=== PATIENT | female | born 1975 | race Hispanic/Latino ===

== ENCOUNTER 2019-10-05 10:00 | Inpatient (IN) | payer BC ==
[~2019-10-05] VITALS: Ht 157.5 cm; Wt 76.6 kg
[~2019-10-05 10:00] MED LIST: MULT-722 PO
[2019-10-05 10:34] LABS: BASOPHILS % (AUTO) 0.5 % (0.0-5.0); EOSINOPHILS % (AUTO) 0.7 % (0.0-8.0); HEMATOCRIT 33.7 % (36-48); LYMPHOCYTES % (AUTO) 17.2 % (21.0-51.0); MEAN CORPUSCULAR HEMOGLOBIN 21.3 pg (27.0-33.0); MEAN CORPUSCULAR HGB CONC 29.4 g/dL (32.0-36.0); MEAN CORPUSCULAR VOLUME 72.6 fL (79-99); MONOCYTES % (AUTO) 6.6 % (3.0-13.0); NEUTROPHILS % (AUTO) 74.5 % (40.0-77.0); PLATELET COUNT (AUTO) 280 K/uL (130-400); RED BLOOD CELL COUNT(AUTO) 4.64 MIL/uL (4.00-5.50); RED CELL DISTRIBUTION WIDTH 17.4 % (11.0-15.5)
[2019-10-05 10:49] LABS: CREATININE 0.6 mg/dL (0.5-1.5); POTASSIUM 3.9 mmol/L (3.5-5.1)
--- NOTE | 2019-10-11 10:05 | NUR ---
labs abnormal labs reported to dr. poole, message left with yen. pending call back
[2019-10-12] VITALS (21 sets, daily range): BP systolic 116–155; BP diastolic 52–95
[2019-10-12] MEDS ORDERED: DURAMORPH PF1 MG/ML 10ML AMP IV ONE (12:20)
[2019-10-12] MEDS ORDERED: LIDOCAINE PF 2% 5ML ABBOJECT ONE (12:21)
[2019-10-12] MEDS ORDERED: DEXAMETHASONE SOD PHOSPHATE 10MG/ML 1ML VIAL ONE (12:21)
[2019-10-12] MEDS ORDERED: SUCCINYLCHOLINE CHLORIDE 20 MG/ML 10 ML VIAL ONE (12:21)
[2019-10-12] MEDS ORDERED: ONDANSETRON HCL 4 MG/2 ML VIAL ONE (12:22)
[2019-10-12] MEDS ORDERED: MIDAZOLAM HCL 1 MG/ML 2ML VIAL ONE ×2 (12:22→13:01)
[2019-10-12] MEDS ORDERED: NEOSTIGMINE 5MG/5ML SYR IV ONE ×2 (12:23→15:36)
[2019-10-12] MEDS ORDERED: FENTANYL CITRATE PF 50 MCG/1 ML 2ML VIAL ONE (12:23)
[2019-10-12] MEDS ORDERED: ROCURONIUM 10MG/1ML SYR 10 MG/ML ML ONE (12:23)
[2019-10-12] MEDS ORDERED: PROPOFOL 10 MG/ML 20ML VIAL IV ONE (12:23)
[2019-10-12] MEDS ORDERED: GLYCOPYRROLATE 1 MG/5 ML SYRINGE ONE (12:23)
--- NOTE | 2019-10-12 12:30 | NUR ---
preop pt arrived ambulatory in no distress. pt here for [place]. pt oriented to room and call light. will continue to monitor pt.
[2019-10-12] MEDS ORDERED: HYDR25TA PO (12:50)
[2019-10-12] MEDS ORDERED: CEFAZOLIN SODIUM 1 GM VIAL ONE (13:07)
[2019-10-12] MEDS: LACTATED RINGERS 1000ML 1,000 ML IV SCH ×2 (13:12→15:55)
[2019-10-12] MEDS ORDERED: EPHEDRINE SULFATE 50 MG/ML AMPULE ONE (15:01)
[2019-10-12] MEDS ORDERED: BISACODYL 10 MG SUPP.RECT RC PRN (16:00)
[2019-10-12] MEDS ORDERED: ACETAMINOPHEN-CODEINE 300/30MG TAB PO PRN (16:00)
[2019-10-12] MEDS ORDERED: PROMETHAZINE HCL 25 MG/ML 1ML AMPULE IM PRN (16:00)
[2019-10-12] MEDS ORDERED: IBUPROFEN 600 MG TABLET PO PRN (16:00)
[2019-10-12] MEDS ORDERED: MEPERIDINE-PF 25 MG/ML SYG ONE ×2 (16:11→16:19)
[2019-10-12] MEDS: DEXTROSE 5 %-0.45 % NACL 1,000 ML IV PRN (17:16)
--- NOTE | 2019-10-12 18:00 | NUR ---
PATIENT HAS REMAINED STABLE BUT HAD ONE EPISODE OF EMESIS FOR 100CC OF WATER EMESIS. PATIENT HAD BEEN EATING ICE PRIORTO EPISODE. STATES BEGINING TO HAVE SOME PAIN TO ABDOMEN.
[2019-10-12] MEDS ORDERED: NALOXONE HCL 0.4 MG/1 ML ML IVP PRN ×3 (18:45)
[2019-10-12] MEDS ORDERED: DiphenhydrAMINE HCL 50 MG/ML VIAL IVP PRN (18:45)
[2019-10-12] MEDS ORDERED: MEPERIDINE-PF 25 MG/ML SYG IV PRN (18:45)
[2019-10-12] MEDS ORDERED: EPHEDRINE SULFATE 50 MG/ML AMPULE IVP PRN (18:45)
[2019-10-12] MEDS: ONDANSETRON HCL 4 MG/2 ML VIAL IVP PRN (18:58)
--- NOTE | 2019-10-12 19:15 | NUR ---
REPORT GIVEN TO Breanne MARTINEZ RN AND PATIENT CARE TRANSFERED AT THIS TIME.
[2019-10-12] MEDS: PROMETHAZINE HCL 25 MG/ML 1ML AMPULE IM PRN (20:09)
[2019-10-12] MEDS: MEPERIDINE-PF 75 MG/ML SYG IM PRN (20:10)
[2019-10-13] MEDS: DEXTROSE 5 %-0.45 % NACL 1,000 ML IV PRN ×2 (01:24→10:49)
--- NOTE | 2019-10-13 01:31 | NUR ---
PT. MEDICATED WIT 2 TABS TYLENOL WITH CODEINE FOR A PAIN SCALE OF 5, DENIED N/V AT THIS TIME.
--- NOTE | 2019-10-13 02:02 | NUR ---
PT. CALLED THAT SHE VOMITED AND THAT SHE MAY HAVE VOMITED THE CODEINE TABLETS; ON EXAMINATION OF THE EMESIS, 60 CC OF CLEAR FLUID WAS SEEN, NO TABLETS WAS SEEN OR FELT. INST PT. THAT IF PAIN PERSISTS, SHE WILL BE REASSESSED. PT DROWSY AT THIS TIME AND DENIED PAIN.
[2019-10-13 03:57] VITALS: BP 111/66
--- NOTE | 2019-10-13 04:30 | NUR ---
TAYA CARE DONE, ABDOMINAL BINDER APPLIED.
[2019-10-13] MEDS: PROMETHAZINE HCL 25 MG/ML 1ML AMPULE IM PRN (04:35)
[2019-10-13] MEDS: MEPERIDINE-PF 75 MG/ML SYG IM PRN (04:36)
--- NOTE | 2019-10-13 04:36 | NUR ---
PT. MED FOR PAIN, NO N/V NOTED.
--- NOTE | 2019-10-13 06:05 | NUR ---
HARE CATHETER DISCONTINUED, TAYA CARE DONE. PT. INST TO CALL FOR ASSIST BEFORE GETTING OUT OF BED, VERBALIZED UNDERSTANDING. Addendum: 10/13/19 at 0621 by FRANCISCO MARTINEZ RN RN Amended: Links added.
[2019-10-13 06:19] LABS: HEMATOCRIT 29.3 % (36-48); MEAN CORPUSCULAR HEMOGLOBIN 21.3 pg (27.0-33.0); MEAN CORPUSCULAR HGB CONC 29.7 g/dL (32.0-36.0); MEAN CORPUSCULAR VOLUME 71.6 fL (79-99); PLATELET COUNT (AUTO) 230 K/uL (130-400); RED BLOOD CELL COUNT(AUTO) 4.09 MIL/uL (4.00-5.50); RED CELL DISTRIBUTION WIDTH 17.1 % (11.0-15.5); WHITE BLOOD COUNT (AUTO) 12.6 K/uL (4.8-10.8)
[2019-10-13 07:40] VITALS: BP 110/63
[2019-10-13] MEDS ORDERED: HYDROCODONE/ACETAMINOPHEN 5/325 MG TAB PO PRN (07:45)
[2019-10-13] MEDS ORDERED: BISACODYL 10 MG SUPP.RECT RC PRN (07:45)
[2019-10-13] MEDS: ONDANSETRON HCL 4 MG/2 ML VIAL IVP PRN (08:12)
--- NOTE | 2019-10-13 08:30 | NUR ---
PATIENT ASSISTED UP TO CHAIR AND TOLERATED ACTIVITY WELL. INDICATED WANTING TO VOID AND WAS ABLE TO VOID WELL.
[2019-10-13] MEDS: DOCUSATE SODIUM 100 MG CAP PO PRN ×2 (09:03→21:13)
[2019-10-13] MEDS: IBUPROFEN 800 MG TAB PO PRN ×2 (10:48→21:14)
[2019-10-13 11:09] VITALS: BP 106/52
--- NOTE | 2019-10-13 16:00 | NUR ---
PATIENT MEDICATED WITH TYLENOL #3 X 2 TABS AND AMBULATED IN HALLWAY. PIV REMOVED AND PATIENT DENIES ANY PROBLEMS.
[2019-10-13] MEDS: ACETAMINOPHEN-CODEINE 300/30MG TAB PO PRN ×2 (16:07→20:02)
[2019-10-13 16:22] VITALS: BP_SYST 119; BP_SYST 131; BP_DIAS 60; BP_DIAS 74
[2019-10-13 19:49] VITALS: BP 122/70
[2019-10-13] MEDS: SIMETHICONE 80 MG TAB.CHEW PO PRN (21:13)
[2019-10-14 00:14] VITALS: BP 126/78
[2019-10-14 04:23] VITALS: BP 115/67
[2019-10-14] MEDS: ACETAMINOPHEN-CODEINE 300/30MG TAB PO PRN (05:08)
[2019-10-14] MEDS: IBUPROFEN 800 MG TAB PO PRN (06:05)
[2019-10-14 08:00] VITALS: BP 144/77
[2019-10-14] MEDS: DOCUSATE SODIUM 100 MG CAP PO PRN (08:26)
[2019-10-14] MEDS: SIMETHICONE 80 MG TAB.CHEW PO PRN (08:27)
--- NOTE | 2019-10-14 09:50 | NUR ---
DR. WHITE ROUNDED AND DISCHARGED PATIENT TO HOME. PATIENT TO FOLLOW UP IN CLINIC IN ONE WEEK. PATIENT IS STABLE AND JUST FINISHED TAKING SHOWER AND TOLERATED ACTIVITY WELL.
--- NOTE | 2019-10-14 10:55 | NUR ---
DISCHARGE INSTRUCTIONS GIVEN AND PATIENT VERBALIZED UNDERSTANDING INSTRUCTIONS. REINFORCED PER DR. WHITE TO CONTINUE TAKING IRON PILLS AFTER DISCHARGE FOR ANEMIA AND SCRIPT FOR TYLENOL #3 GIVEN AND INSTRUCTED ON DOSAGE AND FREQUENCY OF TYLENOL #3, MOTRIN, AND IRON TABLETS. PT INDICATED UNDERSTANDING INSTRUCTIONS GIVEN.
--- NOTE | 2019-10-14 11:20 | NUR ---
WAS TAKEN VIA W/C TO FAMILY VEHICLE AND WAS DISCHARGED TO HER SPOUSE IN STABLE CONDITION.
== END 2019-10-14 11:20 | disposition home or self-care (01) | DRG 743 ==
LOC: EDSTATUS 10:00 → DAHIP 10-12 12:13 → WSH 10-12 17:00
PROVIDERS: ADMIT Specialist; ATTEND Specialist
PROC: 0UT90ZZ Resection of Uterus, Open Approach (ICD-10-PCS; principal; 2019-10-12 14:30)
PROC: 0UT70ZZ Resection of Bilateral Fallopian Tubes, Open Approach (ICD-10-PCS; 2019-10-12 14:30)
PROC: 0UT20ZZ Resection of Bilateral Ovaries, Open Approach (ICD-10-PCS; 2019-10-12 14:30)
DX: D25.9 Leiomyoma of uterus, unspecified (principal); Z20.828 Contact with and (suspected) exposure to other viral communicable diseases; Z98.891 History of uterine scar from previous surgery; Z98.51 Tubal ligation status
CPT/HCPCS: 36415; 80048; 84703; 85025; 85027; 86850; 86900; 86901; A4344; G0378; J0330; J0690; J1100; J2001; J2175; J2250; J2274; J2405; J2550; J2704; J2710; J3010; J3490; J7030; J7120; U0003

== ENCOUNTER 2024-07-10 08:02 | Emergency (ER) | payer BC ==
[~2024-07-10] VITALS: Ht 157.5 cm; Wt 104.3 kg
[~2024-07-10 08:02] MED LIST changes: +CYCL-309 PO; +HYDR25TA PO; +IBUP-2070 PO; -MULT-722 PO
[2024-07-10 08:45] VITALS: BP 158/96; PULSE 84; RESP 23; TEMP 98.1; O2SAT 96
[2024-07-10 08:49] LABS: BASOPHILS # (AUTO) 0.02 K/uL (0.00-0.20); BASOPHILS % (AUTO) 0.3 % (0.0-5.0); EOSINOPHILS # (AUTO) 0.13 K/uL (0.00-0.70); EOSINOPHILS % (AUTO) 1.6 % (0.0-8.0); HEMATOCRIT 42.1 % (36-48); IMMATURE GRANULOCYTE ABSOLUTE 0.04 K/uL (0-1); LYMPHOCYTES # (AUTO) 1.4 K/uL (1.0-4.8); LYMPHOCYTES % (AUTO) 17.4 % (21.0-51.0); MEAN CORPUSCULAR HEMOGLOBIN 27.9 pg (27.0-33.0); MEAN CORPUSCULAR HGB CONC 32.8 g/dL (32.0-36.0); MEAN CORPUSCULAR VOLUME 85.2 fL (79-99); MONOCYTES # (AUTO) 0.4 K/uL (0.1-1.0); MONOCYTES % (AUTO) 5.6 % (3.0-13.0); NEUTROPHILS # (AUTO) 5.9 K/uL (1.8-7.7); NEUTROPHILS % (AUTO) 74.6 % (40.0-77.0); PLATELET COUNT (AUTO) 227 K/uL (130-400); RED BLOOD CELL COUNT(AUTO) 4.94 MIL/uL (4.00-5.50); RED CELL DISTRIBUTION WIDTH 12.7 % (11.0-15.5); WHITE BLOOD COUNT (AUTO) 7.9 K/uL (4.8-10.8)
--- NOTE | 2024-07-10 08:50 | NUR ---
Patient is alert and oriented. Able to voice needs. answering all questions without the assisstance of spouce. Significant other told to wait in waiting area due to significant other getting patient aggitated. Notify Mr. Foster charge nurse and ER physician Dr. Dunn.
[2024-07-10] MEDS: acetaMINOPHEN 500 MG TABLET PO ONE (08:51)
[2024-07-10] MEDS: PROCHLORPERAZINE 10MG/2ML INJ IV ONE (08:52)
[2024-07-10] MEDS: LACTATED RINGERS 1000ML 1,000 ML IV ONE (08:52)
[2024-07-10 08:56] LABS: CREATININE 0.5 mg/dL (0.5-1.0); POTASSIUM 3.8 mmol/L (3.5-5.1)
[2024-07-10 09:21] VITALS: TEMP 98.1
--- NOTE | 2024-07-10 09:23 | EKG ---
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
--- NOTE | 2024-07-10 09:36 | NUR ---
home medication reviewed.
--- NOTE | 2024-07-10 10:46 | ERN ---
General Chief Complaint: Headache Stated Complaint: HEADACHE, AMS Time Seen by MD: 08:08 Source: patient History of Present Illness Initial Comments PATIENT IS A 48-YEAR-OLD FEMALE COMING IN WITH SEVERAL COMPLAINTS. PATIENT STATES THAT SHE HAS BEEN HAVING HEADACHES FOR ONE WEEK. SHE DOES HAS A HISTORY OF MIGRAINES AND ANXIETY. PER PATIENT SHE HAS STOPPED TAKING HER ANXIETY M EDICATIONS ONE WEEK AGO. HAS BEEN IN HIS CONCERNED OF HER PRESENTATIONS WAS BROUGHT HER IN FOR FURTHER EVALUATION Allergies: Coded Allergies: cyproheptadine (Unverified Allergy, Severe, HIVES, PINS AND NEEDLES SENSATION, 12/30/15) erythromycin base (Unverified Allergy, Severe, SWELLING OF TONGUE, EYES, MOUTH, THROAT , 12/30/15) clarithromycin (Unverified Allergy, Mild, VOMITING, 12/30/15) Home Meds Active Scripts Ibuprofen (Ibuprofen) 600 Mg Tablet, 600 MG PO Q6H PRN for PAIN, #30 TAB 1 Refill Prov:PATRICK HOUSE MD 06/08/21 Cyclobenzaprine HCl (Cyclobenzaprine HCl) 10 Mg Tablet, 10 MG PO TID PRN for PAIN, #15 TAB 0 Refills Prov:PATRICK HOUSE MD 06/08/21 Reported Medications Hydrochlorothiazide (Hydrochlorothiazide) 25 Mg Tablet, 25 MG PO HS, TAB 10/12/19 Past Medical History Past Medical History: Hypertension, Migraines Past Surgical History: Hysterectomy, ROS Dictation CONSTITUTIONAL: NO CHILLS, NO FEVER, NO WEAKNESS, NO DIAPHORESIS, NO MALAISE. HEAD/FACE: NO SIGNS OF TRAUMA. EENT: NO EYE PAIN, NO BLURRED VISION, NO TEARING, NO DOUBLE VISION, NO EAR PAIN, NO EAR DISCHARGE, NO NOSE PAIN, NO NASAL CONGESTION, NO THROAT PAIN, NO THROAT SWELLING, NO MOUTH PAIN. RESPIRATORY: NO COUGH, NO ORTHOPNEA, NO SOB, NO STRIDOR, NO WHEEZING. CARDIOVASCULAR: NO CHEST PAIN, NO EDEMA, NO PALPITATIONS, NO SYNCOPE. GASTROINTESTINAL/ABDOMINAL: NO ABDOMINAL PAIN, NO CONSTIPATION, NO DIARRHEA, NO NAUSEA, NO VOMITING. GENITOURINARY: NO ABNORMAL DISCHARGE, NO DYSURIA, NO FREQUENT URINATION, NO HEMATURIA. NO COMPLAINTS OF PAIN IN THE GENITALS. MUSCULOSKELETAL: NO BACK PAIN, NO GOUT, NO JOINT PAIN, NO JOINT SWELLING, NO MUSCLE PAIN, NO MUSCLE STIFFNESS, NO NECK PAIN. INTEGUMENTARY: NO CHANGE IN COLOR, NO CHANGE IN HAIR/NAILS, NO DRYNESS, NO LESION, NO LUMPS, NO RASH. NEUROLOGICAL/PSYCH: NO ANXIETY, NOT DEPRESSED, NO EMOTIONAL PROBLEM, NO HEADACHE, NO NUMBNESS, NO PRE-EXISTING DEFICIT, NO HISTORY OF SEIZURES, NO TREMORS, NO WEAKNESS. HEMATOLOGIC/LYMPHATIC: NOT ANEMIC, NO HISTORY OF BLOOD CLOTS, NO APPARENT BLEEDING, NO BRUISING, GLANDS NOT SWOLLEN. ALL SYSTEMS NEGATIVE, EXCEPT NOTED. Physical Exam Physical Exam Dictation VITAL SIGNS: REVIEWED. GENERAL APPEARANCE: ALERT, ORIENTED X3, NO ACUTE DISTRESS, OBESE. HEAD AND FACE: NON-TRAUMATIC. EYES: PERRL, PINK CONJUNCTIVAS, EYELID NO TRAUMA, ANTERIOR CHAMBER CLEAR. EARS: PINNAS INTACT AND NO SIGNS OF TRAUMA OR ERYTHEMA. EAR CANALS CLEAR AND NO DISCHARGE. TMS NO ERYTHEMA. NOSE: NO DISCHARGE, NO BLEEDING. OROPHARYNX: MOUTH NORMAL, TEETH NO CARIES, TONGUE PINK. PHARYNX CLEAR, NO ERYTHEMA. TONSILS NO EXUDATES, NO ABSCESSES NOTED. MUCOUS MEMBRANE MOIST. NECK: SUPPLE, NON-TENDER, NO THYROMEGALY, NO MASSES, NO JVD, NO BRUITS. BREAST: DEFERRED. CHEST: NO TENDERNESS, NO CREPITUS, NO PARADOXICAL MOVEMENT, NO RETRACTIONS. LUNGS: CLEAR, WELL-VENTILATED, SYMMETRIC, NO RALES, NO WHEEZING, NO RHONCHI, NO STRIDOR, GOOD BREATH SOUNDS BILATERALLY. HEART: REGULAR RATE, REGULAR RHYTHM, NO MURMUR, NO GALLOPS. VASCULAR: NO PERIPHERAL EDEMA. ABDOMEN: SOFT, POSITIVE BOWEL SOUNDS, NONDISTENDED, NO GUARDING, NONTENDER, NO REBOUND, NO MASSES NO HEPATOMEGALY, NO SPLENOMEGALY, NO AGUIRRE'S SIGN, NO HERNIAS. RECTAL: DEFERRED. GENITAL: DEFERRED. NEUROLOGICAL: NORMAL SPEECH, GROSS MOTOR FUNCTION INTACT, GROSS SENSORY FUNCTION INTACT. MUSCULOSKELETAL: NECK NONTENDER, FULL RANGE OF MOTION, BACK NONTENDER, FULL RANGE OF MOTION. EXTREMITIES: NONTENDER, FULL RANGE OF MOTION. SKIN: COLOR PINK, DRY, NO TURGOR, NO RASH, NO LACERATIONS, NO ABRASIONS, NO CONTUSIONS. LYMPHATICS: DEFERRED. Results Laboratory and Microbiology Lab and Micro Result Laboratory Tests Test 07/10/24 08:42 07/10/24 11:20 White Blood Count 7.9 K/uL (4.8-10.8) Red Blood Count 4.94 MIL/uL (4.00-5.50) Hemoglobin 13.8 g/dL (12.0-16.0) Hematocrit 42.1 % (36-48) Mean Corpuscular Volume 85.2 fL (79-99) Mean Corpuscular Hemoglobin 27.9 pg (27.0-33.0) Mean Corpuscular Hemoglobin Concent 32.8 g/dL (32.0-36.0) Red Cell Distribution Width 12.7 % (11.0-15.5) Platelet Count 227 K/uL (130-400) Mean Platelet Volume 10.1 fL (7.5-10.5) Immature Granulocyte % (Auto) 0.5 % (0-1) Neutrophils (%) (Auto) 74.6 % (40.0-77.0) Lymphocytes (%) (Auto) 17.4 % (21.0-51.0) L Monocytes (%) (Auto) 5.6 % (3.0-13.0) Eosinophils (%) (Auto) 1.6 % (0.0-8.0) Basophils (%) (Auto) 0.3 % (0.0-5.0) Neutrophils # (Auto) 5.9 K/uL (1.8-7.7) Lymphocytes # (Auto) 1.4 K/uL (1.0-4.8) Monocytes # (Auto) 0.4 K/uL (0.1-1.0) Eosinophils # (Auto) 0.13 K/uL (0.00-0.70) Basophils # (Auto) 0.02 K/uL (0.00-0.20) Absolute Immature Granulocyte (auto 0.04 K/uL (0-1) Nucleated Red Blood Cells 0.0 % (0.0-0.19) Sodium Level 135 mmol/L (136-145) L Potassium Level 3.8 mmol/L (3.5-5.1) Chloride Level 103 mmol/L (101-111) Carbon Dioxide Level 25 mmol/L (21-32) Blood Urea Nitrogen 8 mg/dL (7-18) Creatinine 0.5 mg/dL (0.5-1.0) Glomerular Filtration Rate Calc 116 mL/min (>90) Random Glucose 172 mg/dL (70-105) H Total Calcium 8.6 mg/dL (8.5-10.1) Troponin I High Sensitivity 7 ng/L (4-50) Urine Color YELLOW (YELLOW) Urine Appearance CLEAR (CLEAR) Urine pH 7.0 (5.0-8.0) Urine Specific [place] 1.017 (1.001-1.031) Urine Protein 20 mg/dL (NEGATIVE) H Urine Glucose (UA) NEGATIVE mg/dL (NEGATIVE) Urine Ketones NEGATIVE mg/dL (NEGATIVE) Urine Occult Blood NEGATIVE (NEGATIVE) Urine Nitrate NEGATIVE (NEGATIVE) Urine Bilirubin NEGATIVE mg/dL (NEGATIVE) Urine Urobilinogen 0.2 mg/dL (0.2-1.0) Urine Leukocyte Esterase NEGATIVE [place]/uL Urine RBC 2-5 /HPF (0-1) H Urine WBC 2-5 /HPF (0-1) H Urine Squamous Epithelial Cells RARE /HPF (0-2) Urine Bacteria None /HPF (None Seen) Urine Opiates Screen NEGATIVE (NEGATIVE) Urine Barbiturates Screen NEGATIVE (NEGATIVE) Urine Phencyclidine Screen NEGATIVE (NEGATIVE) Urine Amphetamines Screen NEGATIVE (NEGATIVE) Urine Benzodiazepines Screen NEGATIVE (NEGATIVE) Urine Cocaine Screen NEGATIVE (NEGATIVE) Urine Marijuana (THC) Screen NEGATIVE (NEGATIVE) Labs Reviewed?: Yes EKG/XRAY/US/CT/MRI EKG Comment 03/2024 TIME 8:23 A.M. VENTRICULAR RATE 93 SINUS RHYTHM MD [address] WAVE ELEVATION OR DEPRESSION X-RAY Comment [address] [address] IMAGING REPORT Signed PATIENT: KARLIE IQBAL MR#: [id number] : 1975 SEX: F AGE: 48 LOCATION: [facility] ORDER 9 STATUS: [facility] REPORT#: [id number] SERVICE 6 REASON: cp ORDERING PHYSICIAN: NATALY COBIAN MD PROCEDURE: CXR1VW - CHEST 1VW CHEST 1VW REASON: cp COMPARISON: 06/08/2021 FINDINGS: Single view of the chest was obtained. Lungs are clear. Heart size is normal. There is no pulmonary vascular congestion. Mediastinum and bony thorax appear unremarkable. IMPRESSION: 1. Normal single view chest x-ray. DICTATED BY: LUCIANO SCHWARZ MD DATE: 07/10/24 1129 ELECTRONICALLY SIGNED BY: LUCIANO SCHWARZ MD DATE: 07/10/24 1132 [facility] MDM: DIFFERENTIAL DIAGNOSIS: ANXIETY RATIONALE: TESTS CONSIDERED AND ORDERED SECONDARY TO SHARED DECISION MAKING INCLUDE: PREVIOUS OUTSIDE RECORDS REVIEWED: OLD ER VISITS. RISK OF COMPLICATION AND/OR MORBIDITY OR MORTALITY OF PATIENT MANAGEMENT: NONE MEDICATIONS-PER MEDICATION RECONCILIATION PATIENT IS A 48-YEAR-OLD FEMALE COMING IN TO BE EVALUATED FOR ANXIOUSNESS. PATIENT STATES HE HAS A SHE STOPPED TAKING HER MEDICATION FOR ANXIETY. HAS BEEN WAS CONCERNED BECAUSE PATIENT WAS VERY ANXIOUS. LABORATORY WORKUP WITHIN NORMAL LIMITS I DID ADVISED HER TO CONTINUE TAKING HER MEDICATIONS. PATIENT WILL BE DISCHARGED IN STABLE CONDITION. THROUGHOUT ER VISIT PATIENT HAS BEEN STABLE RESTING. PATIENT HAS BEEN NEUROLOGICALLY INTACT PATIENT IS ALERT AND ORIENTED CRANIAL NERVES 2-12 GROSSLY INTACT. PATIENT ALSO STATES THAT SHE FEELS MUCH BETTER. ED Course Orders Procedure Category Date Status Time Cbc With Differential LAB 07/10/24 Complete 08:17 Chest 1vw RAD 07/10/24 Resulted 08:17 12 Lead Ekg Tracing- EKG 07/10/24 Complete Technical 08:17 Lactated Ringers PHA 07/10/24 Complete 1000ml (Lactated 08:30 Troponin I High LAB 07/10/24 Complete Sensitivity 08:17 Urinalysis Profile LAB 07/10/24 Complete 08:17 Basic Metabolic Panel LAB 07/10/24 Complete 08:17 Prochlorperazine PHA 07/10/24 Complete 10mg/2ml Inj 08:30 Drug Screen Urine LAB 07/10/24 Complete 08:17 Acetaminophen 500mg PHA 07/10/24 Complete Tab (Tylenol 500mg T 08:30 Current Medications Medications (Trade) Dose Ordered Sig/Jose A Route PRN Reason Start Time Stop Time Status Last Admin Dose Admin Acetaminophen (TYLenol 500MG TAB) 500 mg ONCE ONCE PO 07/10/24 08:30 07/10/24 08:31 DC 07/10/24 08:51 Lactated Ringer's 1,000 ml @ 0 mls/hr ONCE ONCE IV 07/10/24 08:30 07/10/24 08:31 DC 07/10/24 08:52 Prochlorperazine Edisylate (Compazine 10mg/ 2ml Inj) 10 mg ONCE ONCE IV 07/10/24 08:30 07/10/24 08:31 DC 07/10/24 08:52 Vital Signs Date Time Temp Pulse Resp B/P (MAP) Pulse Ox O2 Delivery O2 Flow Rate FiO2 07/10/24 08:51 98.1 07/10/24 08:45 98.1 84 23 158/96 96 Room Air* 0 21 07/10/24 08:03 98.2 104 18 215/122 95 0 DX & DISP Disposition: Discharge Departure Impression: Primary Impression: Anxiety Condition: Stable Additional Instructions: FOLLOW-UP WITH PRIMARY CARE PROVIDER IN 1 TO 2 DAYS. TAKE MEDICATIONS DIRECTED HERE IN THE EMERGENCY ROOM. OKAY TO CONTINUE HOME MEDICATIONS UNLESS OTHERWISE DISCUSSED DURING YOUR VISIT IN THE EMERGENCY ROOM TODAY. RETURN TO YOUR NEAREST EMERGENCY ROOM IF SYMPTOMS WORSEN OR IF THERE IS NO IMPROVEMENT. CALL 911 IF YOU NEED IMMEDIATE ASSISTANCE. TAKE TYLENOL [id number] NEEDED AND IF NO CONTRAINDICATIONS ARE PRESENT. INCREASE ORAL HYDRATION. A WOUND CULTURE OR URINE CULTURE WAS ORDERED HERE IN THE EMERGENCY ROOM DEPARTMENT PLEASE FOLLOW-UP WITH PRIMARY CARE PROVIDER AND ADVISE THEM TO GET REPEAT PORTS FROM OUR FACILITY. IF YOU HAD ANY MAGALY WRAP/SPLINTS THAT WERE APPLIED HERE, PLEASE DO NOT REMOVE THEM UNTIL YOU SEE YOUR PRIMARY CARE OR SPECIALTY. REFERRALS: Referrals: PANKAJ VAZQUEZ MD (PCP) Time of Disposition: 11:43 NATALY OCBIAN MD Jul 10, 2024 10:46
[2024-07-10 11:31] LABS: ADD UA MICROSCOPIC YES; APPEARANCE,URINE CLEAR (CLEAR); BILIRUBIN,URINE NEGATIVE (NEGATIVE); COLOR,URINE YELLOW (YELLOW); GLUCOSE, URINE (UA) NEGATIVE (NEGATIVE); KETONES,URINE NEGATIVE (NEGATIVE); LEUKOCYTE ESTERASE ,URINE NEGATIVE Leu/uL (NEGATIVE); NITRATE,URINE NEGATIVE (NEGATIVE); OCCULT BLOOD,URINE NEGATIVE (NEGATIVE); PROTEIN,URINE 20 mg/dL (NEGATIVE); UROBILINOGEN,URINE 0.2 mg/dL (0.2-1.0)
--- NOTE | 2024-07-10 11:32 | HMCIMG ---
CHEST 1VW REASON: cp COMPARISON: 06/08/2021 FINDINGS: Single view of the chest was obtained. Lungs are clear. Heart size is normal. There is no pulmonary vascular congestion. Mediastinum and bony thorax appear unremarkable. IMPRESSION: 1. Normal single view chest x-ray.
[2024-07-10 11:33] LABS: AMPHET/METH SCREEN,URINE NEGATIVE (NEGATIVE); BARBITURATE SCREEN, URINE NEGATIVE (NEGATIVE); BENZODIAZEPINES SCREEN,URINE NEGATIVE (NEGATIVE); CANNABINOID SCREEN,URINE NEGATIVE (NEGATIVE); COCAINE SCREEN,URINE NEGATIVE (NEGATIVE); OPIATE SCREEN,URINE NEGATIVE (NEGATIVE); PHENCYCLIDINE SCREEN,URINE NEGATIVE (NEGATIVE)
--- NOTE | 2024-07-10 11:34 | NUR ---
Patient cringes every time her significant other gets near her.
[2024-07-10 11:36] LABS: MUCUS,URINE FEW LPF (None Seen); SQUAMOUS EPITHELIAL CELL,UR RARE /HPF (0-2)
--- NOTE | 2024-07-10 11:47 | NUR ---
vital signs before patient left: blood pressure 153/75 mmHg temperature 98.3 pulse 91 p/min respirations 17 p/min O2 saturation 97% at room air
== END 2024-07-10 11:50 | disposition home or self-care (01) ==
LOC: EDH 08:02
DX: F41.9 Anxiety disorder, unspecified (principal); I10 Essential (primary) hypertension; Z88.1 Allergy status to other antibiotic agents; Z90.710 Acquired absence of both cervix and uterus
CPT/HCPCS: 99284; 96374; 71045; 96361; 84484; 80048; 80305; 85025; 36415; 93005; 81001; J7120; J0780